=== PATIENT | female | born 1990 | race Two or more races ===

== ENCOUNTER 2016-09-12 01:29 | Emergency (ER) | payer OTHER ==
--- NOTE | ~2016-09-12 | US134 ---
[facility] A Service of [facility] RADIOLOGY TEXT RESULTS PATIENT: SURESH DOLAN LOCATION: [facility] : 88 UNIT #: [id number] AGE: [address]: Cali Flores MD SEX: F ORDER DR: [id number] [facility]. [place], [place] [address] [id number] MR#: [id number] Acc #: [id number] NAME: SURESH DOLAN : 1990 SEX: F STUDY DATE/TIME: 09/12/2016 2:05 UNIT: PAUL ROOM: STUDY DESCRIPTION: Transvaginal Attending Physician: Cali Flores M.D. Ordering Physician: Cali Flores M.D. Primary Care Physician: Primary Care Physician No MEDICAL IMAGING REPORT This report is preliminary unless electronic signature is present EXAM Pelvic ultrasound INDICATION Left lower quadrant abdominal and pelvic pain for the past few days. Pelvic pain for the past few days. PROCEDURE Amos-scale and Doppler imaging of the pelvis via transvaginal approach. COMPARISON None. FINDINGS Uterus is anteverted measures 6.1 cm x 4.7 cm x 6.4 cm. Right ovary measures 2.9 cm x 2.4 cm x 4.0 cm. It contains 2 small cysts or dominant follicles. Left ovary is not well seen. The endometrium is prominent measuring up to 2 cm. IMPRESSION Prominent endometrium but no gestational sac is seen. This could be physiologic related to the patient's phase of menstrual cycle or represent decidual reaction. Recommend correlation with beta HCG levels and continued clinical followup. Next, the right ovary is unremarkable. The left ovary is not well seen on the study Dictated by... Cyrus Godfrey M.D. THIS IS AN ELECTRONICALLY VERIFIED REPORT [facility] A Service of [facility] RADIOLOGY TEXT RESULTS PATIENT: SURESH DOLAN LOCATION: [facility] : [birth year] UNIT #: [id number] AGE: [address]: Cali Flores MD SEX: F ORDER DR: Cyrus Godfrey M.D. at 09/15/2016 7:29 AM PIPER/roseann TD: 09/12/2016 05:03 JOB #: [id number] MEDICAL IMAGING REPORT Page 1 of 1 COPY
[2016-09-12 01:12] LABS: URINE SOURCE CLEAN CATCH
[2016-09-12 01:17] LABS: URINE APPEARANCE CLOUDY; URINE BILIRUBIN NEG (NEG); URINE BLOOD NEG (NEG); URINE COLOR YELLOW; URINE GLUCOSE NEG (NEG); URINE KETONE TRACE (NEG); URINE LEUKOCYTE ESTERASE 2+ (NEG); URINE NITRATE NEG (NEG); URINE PROTEIN NEG (NEG); URINE SPECIFIC GRAVITY 1.029 (1.003-1.035)
[2016-09-12 01:20] LABS: URINE BACTERIA AUWI 2+ (NEGATIVE); URINE SQUAMOUS EPITHELIAL CELL FEW /[HPF]
[2016-09-12 01:30] LABS: BASOPHIL# 0.1 X10e3 (0-0.3); BASOPHIL% 0.6 % (0-2.5); EOSINOPHIL# 0.3 X10e3 (0-0.7); HEMATOCRIT 40.3 % (35.0-45.0); HEMOGLOBIN 13.5 gm/dL (12.0-16.0); LYMPHOCYTE# 2.9 X10e3 (1.0-3.5); LYMPHOCYTE% 25.4 % (17.0-45.0); MEAN CELL VOLUME 86.6 FL (83-96); MEAN CORPUSCULAR HEMOGLOBIN 29.1 PG (28-34); MEAN CORPUSCULAR HGB CONC 33.6 g/dL (30-36); MEAN PLATELET VOLUME 8.5 FL (6.5-11.5); MONOCYTE# 0.8 X10e3 (0-1.0); MONOCYTE% 7.1 % (3.0-12.0); NEUTROPHIL# 7.3 X10e3 (1.5-7.1); NEUTROPHIL% 63.9 % (40-75); PLATELET COUNT 261 X10e3 (140-420); RED BLOOD COUNT 4.65 X10e (3.90-5.30); RED CELL DISTRIBUTION WIDTH 13.3 % (11.0-15.5); WHITE BLOOD COUNT 11.4 X10e3 (4.0-10.5)
[2016-09-12 01:31] LABS: DIFF IND NO
[2016-09-12 01:54] LABS: CALCIUM SERUM 8.9 mg/dL (8.4-10.2); CREATININE SERUM 0.5 mg/dL (0.6-1.4); GLOM FILT RATE Estimated 133.6 mL/min (>60); POTASSIUM 3.4 mmol/L (3.5-5.1)
== END 2016-09-12 03:15 | disposition home or self-care (01) ==
LOC: CED 01:29
PROVIDERS: Emergency Medicine
DX: O23.11 Infections of bladder in pregnancy, first trimester (principal)
CPT/HCPCS: 36415; 76830; 80048; 81003; 84702; 84703; 85025; 96361; 96374; 99284; J2765

== ENCOUNTER 2016-09-17 03:25 | Emergency (ER) | payer OTHER | END 2016-09-17 03:27 | disposition home or self-care (01) | LOC: CED 03:25 | DX: O9A.211 Injury, poisoning and certain other consequences of external causes complicating pregnancy, first trimester (principal); S60.512A Abrasion of left hand, initial encounter; S60.511A Abrasion of right hand, initial encounter; W01.0XXA Fall on same level from slipping, tripping and stumbling without subsequent striking against object, initial encounter; Y92.009 Unspecified place in unspecified non-institutional (private) residence as the place of occurrence of the external cause | CPT/HCPCS: 99283 ==